=== PATIENT | female | born 1990 | race Caucasian/White ===

== ENCOUNTER 2017-06-11 23:56 | Emergency (ER) | payer BC ==
[2017-06-12] MEDS ORDERED: Lactated Ringer's 1,000 ML IV SCH (00:45)
[2017-06-12 00:47] VITALS: BMI 20.7
[2017-06-12 01:17] LABS: BASO # 0.1 K/uL (0.0-0.2); BASO % 0.4 % (0.0-2.0); EOS % 0.2 % (0.0-4.0); LYMPH # 0.8 K/uL (1.0-4.3); LYMPH % 5.9 % (20.0-40.0); MEAN CELL VOLUME 86.7 fl (81.0-99.0); MEAN CORPUSCULAR HGB CONC 33.5 g/dL (33.0-37.0); MEAN PLATELET VOLUME 7.8 fl (7.2-11.7); MONO # 0.7 K/uL (0.0-0.8); MONO % 5.2 % (0.0-10.0); NEUT # 12.2 K/uL (1.8-7.0); NEUT % 88.3 % (50.0-75.0); PLATELET COUNT 149 K/uL (130-400); RBC 4.13 Mil/uL (3.80-5.20); RED CELL DISTRIBUTION WIDTH 13.3 % (11.5-14.5); WHITE BLOOD COUNT 13.9 K/uL (4.8-10.8)
[2017-06-12 01:25] LABS: ALBUMIN 3.8 g/dL (3.5-5.0); ALT/SGPT 26 U/L (9-52); AST/SGOT 24 U/L (14-36); BLOOD UREA NITROGEN 8 mg/dl (7-17); CALCIUM 9.4 mg/dL (8.4-10.2); GFR AFRICAN-AMERICAN > 60; GFR NON-AFRICAN AMERICAN > 60
[2017-06-12 01:36] LABS: URINE BILIRUBIN NEGATIVE (NEGATIVE); URINE BLOOD NEGATIVE (NEGATIVE); URINE CLARITY SLIGHT-CLOUDY (Clear); URINE COLOR YELLOW (YELLOW); URINE GLUCOSE (UA) NEGATIVE (Normal); URINE PROTEIN NEGATIVE (NEGATIVE); URINE UROBILINOGEN 0.2 mg/dL (0.2-1.0)
[2017-06-12 01:37] LABS: SQUAMOUS EPITHIAL 1 /hpf (0-5); URINE BACTERIA OCC (<OCC); URINE LEUKOCYTE ESTERASE NEGATIVE Leu/uL (Negative)
[2017-06-12 01:48] LABS: SPECIMEN COMMENT CLOUDY
[2017-06-12 03:18] LABS: BANDS 6 % (0-2); EOSINOPHIL 1 % (0-7); LYMPHOCYTE 5 % (20-50); MONOCYTE 6 % (0-10); NEUTROPHIL 82 % (42-75); TOTAL CELLS COUNTED 100
[2017-06-12 03:19] LABS: PLATELET ESTIMATE NORMAL (NORMAL)
[2017-06-12 06:20] VITALS: BP 115/69; PULSE 91; RESP 18; TEMP 97.9; O2SAT 100
--- NOTE | 2017-06-12 08:45 | OBHP ---
Datetime: 06/12/2017 00:47 IP Adm Impression: , intrauterine IP Chief Complaint Other: abdominal pain and vaginal discharge IP Admit Plan: Observation/Evaluation Admit Comment, IP Provider: 26 yo at 29.6 weeks GA, USHA on 08/22/17 presents to [facility] w/ c/o RLQ pain and right sided lower back pain since 10:30 pm last night. Pt reports pain started suddenly and worse with movement. Reports she felt nausous earlier but no nausea now. Also, reports whitish vagina l non-odorous discharge for 3 days. Denies dysuria, vomiting, fever, chills. Denies VB, ctx, LOF. Rep orts +FM. Denies hx abdominal surgery. NO VOMITING PNC: Dr. Perez, [place], [place] Past obhx: G1 Past e marketing specialist: denies hx STI. Unsure of PAP results. Can't recall LMP pmhx: denies pshx: denies social hx: denies smoking cigarettes, EtOH use or recreational drug use family hx: denies hx CAD or HTN meds: none ( not taking pnv for last 2 weeks) allergies: NKDA Assessment: 26 yo IUP@ 29.6 weeks GA presents with abdominal pain. Plan: Continuous heart tracing IV fluids CBC CMP UA fFN Re-evaluate Pt feels signficantly better after IVF and tylenol. UA shows no nitrates, leukocytes or blood. fFN is neg. Reactive NST. CMP is remarkable for hypokalemia (K:3.0), advised patient to eat potassium r ich food. CBC has mildly elevated WBC, which could be elevated due to . Advised patient to f /u with Dr. Farah in 2-3 days. labor precaution and ED precaution given Sultan Becerra, pgy-1 Case d/w on-call OB hospitalist Dr. Gracia OB Hosptialist on-call. With PGY1, I saw and examined this patinet. Agree with note. MAHNDO She feels fine. Advised if increased pain with /V to come back to ER. No evidence of appendiciti s - feels hungry...will discharge home Abdomen - PN: Abnormal Back - PN: Normal Lungs - PN: Normal Heart - PN: Normal Neurologic - PN: Normal HEENT - PN: Normal General - PN: Normal FHR - Baseline A Provider: 150s Comments, ACOG Physical Exam: Abdomen:gravid uterus; soft No suprapubic tenderness, no guarding or r ebound tenderness. No CVA tenderness. Speculum exam: no lesion on external genitalia, Mild whitish vaginal discharge on vagial vault. No vaginal bleeding. closed cervix. EGA AdmitDate IP: 29.6 Vital Signs Provider: Reviewed IP Chief Complaint: Maternal discomfort NICHD Variability Prov Fetus A: Moderate 6-25bpm NICHD Accel Fetus A IP Provider: 10X10 FHR Category Provider Fetus A: Category I NICHD Decel Fetus A IP Provider: None Dilatation, Provider: 0
--- NOTE | 2017-06-12 08:45 | OBDCSUM ---
Datetime: 06/12/2017 02:02 Discharged to, Provider: Home Follow up at, Provider: PMD Disch Instr Activity: Normal activity Disch Instr Diet: Regular Discharge Diagnosis, Provider: False Labor - Undelivered Discharge Time: 06/05/2017 02:02 Follow up in weeks, Provider: 1-2w Discharge Diagnosis Prov Other: Abd pain
== END 2017-06-12 02:02 | disposition home or self-care (01) ==
LOC: H.EROB2 23:56
DX: O26.93 Pregnancy related conditions, unspecified, third trimester (principal); R10.2 Pelvic and perineal pain; Z3A.39 39 weeks gestation of pregnancy
CPT/HCPCS: 80053; 81003; 82731; 85025; 96360; 99284; J7120

== ENCOUNTER 2017-08-12 00:52 | Inpatient (IN) | payer BC ==
[2017-08-12] MEDS ORDERED: Phenaphthazine-PH Test Paper VI ONE (01:22)
[2017-08-12 01:36] VITALS: BMI 22.4
[2017-08-12] MEDS ORDERED: Lactated Ringer's 1,000 ML IV SCH (01:45)
[2017-08-12] MEDS: Lactated Ringer's 1,000 ML IV SCH ×2 (01:48→02:28)
[2017-08-12 02:05] LABS: BASO # 0.1 K/uL (0.0-0.2); BASO % 0.8 % (0.0-2.0); EOS # 0.1 K/uL (0.0-0.7); EOS % 0.7 % (0.0-4.0); HEMOGLOBIN 12.9 g/dL (12.0-16.0); LYMPH # 1.7 K/uL (1.0-4.3); LYMPH % 15.6 % (20.0-40.0); MEAN CELL VOLUME 82.3 fl (81.0-99.0); MEAN CORPUSCULAR HEMOGLOBIN 28.5 pg (27.0-31.0); MEAN CORPUSCULAR HGB CONC 34.6 g/dL (33.0-37.0); MEAN PLATELET VOLUME 8.5 fl (7.2-11.7); MONO % 9.5 % (0.0-10.0); NEUT # 7.9 K/uL (1.8-7.0); NEUT % 73.4 % (50.0-75.0); RBC 4.54 Mil/uL (3.80-5.20); RED CELL DISTRIBUTION WIDTH 13.7 % (11.5-14.5); WHITE BLOOD COUNT 10.8 K/uL (4.8-10.8)
[2017-08-12] MEDS ORDERED: Fentanyl/Bupivacaine HCl 250 ML EPI ONE (02:15)
[2017-08-12] MEDS ORDERED: ePHEDrine 50 mg/ml Inj ONE (02:40)
[2017-08-12] MEDS ORDERED: Lidocaine 1% 20 MG/2 ML PF AMP ONE (07:17)
[2017-08-12] MEDS ORDERED: Oxycodone/Acetaminophen 5/325 mg Tab PO PRN (07:22)
[2017-08-12] MEDS ORDERED: Benzocaine/Menthol SPRAY TOP PRN (07:22)
--- NOTE | 2017-08-12 08:03 | OBDS ---
DELIVERY PERSONNEL Delivery Doctor: Nawaf Montanez MD Power Driven Brush Maker: Fauzia Angel RN Resident: Elier Stephen (2 residents) MATERNAL INFORMATION Delivery Anesthesia: Epidural Medications in Delivery: Pitocin 30 mu in 500cc of NS Placenta Cultured: No Maternal Complications: None RN Comments: Atraumatic of Viable babygirl with Lusty cry. Skin to skin initiated immediately after delivery.9/9 APGARS assigned. and patient tolerated delivery well. and patient r ecoverying well. Provider Comments: intrapartum dx: 38.4 weeks;labor, light meconium dx: same procedure: ; placenta delivered spontaneously and intact; repair of 2nd degree laceration ob attending: dr radford residents: brenna pgy1 and mariann pgy1 findings: viable female with spontaneous cry born at 0712, weight:3275g, apgars 9,9 destination: remained with mother in br ebl 400cc path: none LABOR SUMMARY EDC: 08/22/2017 00:00 No. Babies in Womb: 1 Attempted: No Labor Anesthesia: Epidural LABOR INFORMATION Reason for Induction: Not Applicable Onset of Labor: 08/12/2017 01:25 Complete Dilatation: 08/12/2017 06:04 Group B Beta Strep: Done, Result Unknown Antibiotics # of Doses: none Antibiotics Time of Last Dose: none Steroids Given: None Reason Steroids Not Administered: Not Applicable Other Reason Not Administered: not required MEMBRANES Membranes Rupture Method: Spontaneous Rupture of Membranes: 08/12/2017 02:57 Length of Rupture (hrs): 4.25 Amniotic Fluid Color: Light Meconium Amniotic Fluid Amount: Small Amniotic Fluid Odor: Normal STAGES OF LABOR Stage 1 hrs: 4 Stage 1 min: 39 Stage 2 hrs: 1 Stage 2 min: 8 Stage 3 hrs: 0 Stage 3 min: 17 Total Time in Labor hrs: 6 Total Time in Labor min: 4 VAGINAL DELIVERY Episiotomy: None Laceration Type: Perineal Laceration Repair: Yes Laceration Repair Note: 2nd degree laceration repaired with 3-0 vicryl. Sponge Count Correct: Yes Sharps Count Correct: Yes BABY A INFORMATION Delivery Date/Time: 08/12/2017 07:12 Method of Delivery: Vaginal Born in Route : No : N/A Forceps: N/A Vacuum Extraction: N/A Shoulder Dystocia : No SHOULDER DYSTOCIA BABY A Delivery Date/Time: 08/12/2017 07:12 PRESENTATION/POSITION BABY A Presentation: Cephalic Cephalic Presentation: Vertex Vertex Position: Left Occipital Anterior Breech Presentation: N/A PLACENTA INFORMATION BABY A Placenta Delivery Time : 08/12/2017 07:29 Placenta Method of Delivery: Spontaneous Placenta Status: Delivered SCORES BABY A Heart Rate 1 min: >100 bpm Resp Effort 1 min: Good Cry Reflex Irritability 1 min: Cough or Sneeze or Pulls Away Muscle Tone 1 min: Active Motion Color 1 min: Body [place], Extremities Blue Resuscitation Effort 1 min: N/A SCORE 1 MIN: 9 Heart Rate 5 min: >100 bpm Resp Effort 5 min: Good Cry Reflex Irritability 5 min: Cough or Sneeze or Pulls Away Muscle Tone 5 min: Active Motion Color 5 min: Body [place], Extremities Blue Resuscitation Effort 5 min: N/A SCORE 5 MIN: 9 INFORMATION BABY A Gestational Age at Delivery: 38.4 Gestational Status: Term Outcome : Liveborn Infant Condition : Stable Infant Sex: Female IDENTIFICATION/MEDS BABY A ID Band Number: [id number] ID Band Location: Left Leg; Left Arm WEIGHT/LENGTH BABY A Birthweight (gms): 3275 Weight (lb): 7 Infant Weight (oz): 3 CORD INFORMATION BABY A No. Cord Vessels: 3 Nuchal Cord : N/A Cord Blood Taken: Yes Infant Suction: Mouth; Nose ASSESSMENT BABY A Complications: None Physical Findings at Delivery: Within Normal Limits Respirations: Appears Normal Construction Supervisor/Carpenter/ALS Called : No Care By: Jose Angel Transferred To: Remains with Mother
[2017-08-12] MEDS ORDERED: Multivitamin With Minerals Tab PO SCH (09:00)
[2017-08-12 09:48] VITALS: TEMP 98.4
--- NOTE | 2017-08-12 09:56 | OBHP ---
Datetime: 08/12/2017 02:04 EGA AdmitDate IP: 38.4 Datetime: 08/12/2017 02:01 Admit Comment, IP Provider: ob attending addendum: pt seen _ examined by me. agree w/ above assessment and pla26 yo with IUP at 38.4 weeks gesta tional age, USHA 08/22/17 presented to [facility] w/ c/o contractions and suspected rupture of membranes. Con tractions started about 2 hrs prior to presentation, and are currently <5min apart. Pt thinks she rup tured membranes because her clothing was wet. Denies vaginal bleeding, reports movement. Denies headache, chest pain, shortness of breath, dysuria, vomiting, fever, chills. PNC: Dr. Perez, [place], [place] Past OBGYNhx: . Denies hx STI. PMHx: denies Past Surg Hx denies Social hx: denies smoking cigarettes, alcohol, drug use during Fam hx: denies Meds: none Allergies: NKDA SVE: 6 cm 90% effaced, -1 Sterile speculum exam: visible membranes A/P 26 yo w/ IUP at 38.4 weeks; in active labor. Admit to labor and delivery unit; expectant management. ob attending addendum: pt seen _ examined by me. agree w/ above assessment and faby Signature: oz
--- NOTE | 2017-08-12 09:57 | OBADHP ---
Datetime: 08/12/2017 02:04 Admit Comment, IP Provider: 26 yo with IUP at 38.4 weeks gestational age, USHA 08/22/17 presented to [facility] w/ c/o contractions and suspected rupture of membranes. Contractions started about 2 hrs thuy or to presentation, and are currently <5min apart. Pt thinks she ruptured membranes because her cloth ing was wet. Denies vaginal bleeding, reports movement. ROS: Denies headache, chest pain, shortness of breath, dysuria, vomiting, fever, chills. PNC: Dr. Perez, [place], [place] Past OBGYNhx: . Denies hx STI. PMHx: denies Past Surg Hx denies Social hx: denies smoking cigarettes, alcohol, drug use during Fam hx: denies Meds: none Allergies: NKDA SVE: 6 inches, 90% effaced, -1 Sterile speculum exam: membranes A/P 26 yo w/ IUP at 38.4 weeks; in active labor. Admit to labor and delivery unit; expectant management. ob attending addendum: pt seen _ examined by me. agree w/ above assessment and plan. Extremities - PN: Normal Abdomen - PN: Normal Back - PN: Normal Breast - PN: Not Done Lungs - PN: Normal Heart - PN: Normal Thyroid - PN: Not Done Neurologic - PN: Normal HEENT - PN: Normal General - PN: Normal IP Chief Complaint: Uterine contractions Dilatation, Provider: 5 Effacement, Provider: 90 Station, Provider: -1 Genitourinary Exam: Normal EGA AdmitDate IP: 38.4 IP Adm Impression: Term, intrauterine IP Admit Plan: Admit to unit; Initiate labor protocol Datetime: 08/12/2017 02:01 Pelvic Type - PN: Adequate FHR - Baseline A Provider: 130 Membranes, Provider: Intact Pool Provider: Negative Vital Signs Provider: Within Normal Limits NICHD Variability Prov Fetus A: Moderate 6-25bpm NICHD Accel Fetus A IP Provider: 15X15 FHR Category Provider Fetus A: Category I NICHD Decel Fetus A IP Provider: None Datetime: 06/12/2017 00:47 IP Chief Complaint Other: abdominal pain and vaginal discharge Comments, ACOG Physical Exam: Abdomen:gravid uterus; soft No suprapubic tenderness, no guarding or r ebound tenderness. No CVA tenderness. Speculum exam: no lesion on external genitalia, Mild whitish vaginal discharge on vagial vault. No vaginal bleeding. closed cervix.
--- NOTE | 2017-08-12 09:57 | OBHP ---
Datetime: 08/12/2017 02:04 IP Adm Impression: Term, intrauterine IP Admit Plan: Admit to unit; Initiate labor protocol Extremities - PN: Normal Abdomen - PN: Normal Back - PN: Normal Breast - PN: Not Done Lungs - PN: Normal Heart - PN: Normal Thyroid - PN: Not Done Neurologic - PN: Normal HEENT - PN: Normal General - PN: Normal EGA AdmitDate IP: 38.4 IP Chief Complaint: Uterine contractions Dilatation, Provider: 5 Effacement, Provider: 90 Station, Provider: -1 Genitourinary Exam: Normal Datetime: 08/12/2017 02:01 Admit Comment, IP Provider: ob attending addendum: pt seen _ examined by me. agree w/ above assessment and pla26 yo with IUP at 38.4 weeks gesta tional age, USHA 08/22/17 presented to [facility] w/ c/o contractions and suspected rupture of membranes. Con tractions started about 2 hrs prior to presentation, and are currently <5min apart. Pt thinks she rup tured membranes because her clothing was wet. Denies vaginal bleeding, reports movement. Denies headache, chest pain, shortness of breath, dysuria, vomiting, fever, chills. PNC: Dr. Perez, [place], [place] Past OBGYNhx: . Denies hx STI. PMHx: denies Past Surg Hx denies Social hx: denies smoking cigarettes, alcohol, drug use during Fam hx: denies Meds: none Allergies: NKDA SVE: 6 cm 90% effaced, -1 Sterile speculum exam: visible membranes A/P 26 yo w/ IUP at 38.4 weeks; in active labor. Admit to labor and delivery unit; expectant management. Pelvic Type - PN: Adequate FHR - Baseline A Provider: 130 Membranes, Provider: Intact Pool Provider: Negative Vital Signs Provider: Within Normal Limits NICHD Variability Prov Fetus A: Moderate 6-25bpm NICHD Accel Fetus A IP Provider: 15X15 FHR Category Provider Fetus A: Category I NICHD Decel Fetus A IP Provider: None
[2017-08-12] MEDS ORDERED: OXYTOCIN/0.9 % NS 20 UNIT/1,000 ML BAG IV PRN (10:57)
[2017-08-12] MEDS: Benzocaine/Menthol SPRAY TOP PRN (13:18)
[2017-08-12] MEDS: Oxycodone/Acetaminophen 5/325 mg Tab PO PRN (16:41)
[2017-08-13 05:46] LABS: BASO # 0.1 K/uL (0.0-0.2); BASO % 0.5 % (0.0-2.0); EOS # 0.1 K/uL (0.0-0.7); EOS % 0.9 % (0.0-4.0); HEMOGLOBIN 8.4 g/dL (12.0-16.0); LYMPH # 1.6 K/uL (1.0-4.3); LYMPH % 16.2 % (20.0-40.0); MEAN CELL VOLUME 83.5 fl (81.0-99.0); MEAN CORPUSCULAR HEMOGLOBIN 28.4 pg (27.0-31.0); MEAN PLATELET VOLUME 8.1 fl (7.2-11.7); MONO # 0.7 K/uL (0.0-0.8); MONO % 6.9 % (0.0-10.0); NEUT # 7.6 K/uL (1.8-7.0); NEUT % 75.5 % (50.0-75.0); RBC 2.96 Mil/uL (3.80-5.20); RED CELL DISTRIBUTION WIDTH 13.7 % (11.5-14.5)
[2017-08-13] MEDS: Multivitamin With Minerals Tab PO SCH (08:54)
--- NOTE | 2017-08-13 11:07 | OBPPN ---
Datetime: 08/13/2017 07:06 PP Pain Prov: Abnormal PP Nausea Prov: Denies PP Flatus Prov: Yes PP BM Prov: No PP Breasts Prov: Normal PP Heart Prov: Normal PP Lungs Prov: Normal PP Abdomen/Uterus Prov: Normal PP Lochia Prov: Normal PP Plan Prov: Continue present management PP Progress Note Prov: 26 yo s/p NVD on 08/12/17 at 07:12, doing well on PPD 1. Pt was seen and e elishamined at bedside this am. States that she has pain in her pelvic area and that is it very painful f or her to walk, and she feels like her bones are cracking. She is able to ambulate to the bathroom sl owly, and has voided freely. Lochia like menses. Tolerating PO intake, and is breast feeding . Has passed gas, no BM yet. Lochia like menses. Denies chest pain, dyspnea, nausea, vomiting, and dru f pain. Gen: awake, alert, no acute distress Resp: clear to auscultation bilaterally, normal effort CV: RRR, S1S2 Abd: + bs, soft, mildly and appropriately tender, firm fundus at umbilicus Ext: no edema, no calf tenderness Neuro/MSK: equal and intact sensation in all extremities; able to wiggle toes, planar flex, dorsif nixon. Extremities warm to touch, normal color. Pain with passive range of motion hip R>L. A/P 26 yo s/p NVD on 08/12/17 at 07:12, doing well on PPD 1. Encourage . Pain control. Continue current post- management. Medical hospitalis t consult. PP Hgb 8.4 from 12.9. Start ferrous sulfate 325 mg. [facility]...Pt seen and examined...will obtain consult/xray pelvis Vital Signs Provider PP: Reviewed
--- NOTE | 2017-08-13 12:35 | RAD ---
PROCEDURE: Radiographs of the pelvis. L HISTORY: Rule out diastases of the pubic symphysis COMPARISON: None. FINDINGS: BONES: Pelvic Bones: Unremarkable. Hips: Grossly unremarkable. JOINTS: Sacroiliac Joints: Unremarkable. Pubic Symphysis: Widening of the pubic symphysis (2.1 cm) on this single AP view. OTHER FINDINGS: None. 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
--- NOTE | 2017-08-13 14:23 | CP.PCM.CON ---
History of Present Illness - History of Present Illness History of Present Illness: CC: Pubic symphysis pain This is a 26 year old female with no significant past medical history for which the medical hospitalist team was consulted by Dr. Chicas. The patient had an atraumatic on 08/12/2017. Overnight the patient c/o point tenderness to her pubic symphysis and has decreased ROM due to pain. Pelvic X ray was performed which shows 2.1 cm pubic symphysis diastasis which is consistent which her symptoms. The patient is able to bear weight on both legs and denies any weakness bilaterally. She denies any posterior pelvic joint pain. Patient denies chest pain, shortness of breath, fevers, chills, nausea, vomiting, diarrhea, headache. All of the patient's questions were answered at the bedside. Review of Systems - Review of Systems Review of Systems: A 12 point review of systems was conducted and found to be negative Past Patient History - Infectious Disease Hx of Infectious Diseases: None - Past Medical History & Family History Past Medical History?: No Past Family History: Reviewed and not pertinent - Past Social History Smoking Status: Former Smoker Meds Allergies/Adverse Reactions: Allergies Allergy/AdvReac Type Severity Reaction Status Date / Time No Known Allergies Allergy Verified 06/12/17 00:36 - Medications Medications: Current Medications Benzocaine/Menthol (Dermoplast) 1 sprays TOP PRN PRN PRN Reason: Perineal Discomfort Last Admin: 08/12/17 13:18 Dose: 1 sprays Ferrous Sulfate (Feosol) 325 mg PO BID [facility] Last Admin: 08/13/17 08:53 Dose: 325 mg Ibuprofen (Motrin Tab) 600 mg PO Q6 PRN PRN Reason: Pain, Mild (1-3) Last Admin: 08/13/17 08:54 Dose: 600 mg Multivitamins/Minerals (Therapeutic-M Tab) 1 tab PO DAILY [facility] Last Admin: 08/13/17 08:54 Dose: 1 tab Oxycodone/Acetaminophen (Percocet 5/325 Mg Tab) 1 tab PO Q4 PRN PRN Reason: Pain, moderate (4-7) Stop: 08/15/17 07:23 Last Admin: 08/12/17 16:41 Dose: 1 tab Sennosides (Senokot Tab) 17.2 mg PO HS [facility]OCELIN Last Admin: 08/12/17 23:33 Dose: 17.2 mg Physical Exam - Additional Findings Additional findings: Physical exam: Constitutional- cooperative, awake, alert Head- NCAT, PERRL Eye- PERRL, EOMI ENT- normal exam, MMM. Neck- normal inspection, supple, no JVD Respiratory- CTAB, no wheezes rales rhonchi Cardiovascular- RRR, +S1, +S2 no MRG GI/Abdominal- normal bowel sounds, soft, no mass, no hsm Skin- warm, dry Extremities Exam- normal capillary refill, normal inspection. Gait ROM limited due to pain - point tenderness to midline of pubic symphysis, rest of exam deferred Neurological Exam- alert, awake, oriented Psych- normal mood, normal affect Results - Vital Signs Recent Vital Signs: Last Vital Signs Temp 98.4 F 08/12/17 09:29 Pulse 84 08/12/17 09:29 Resp 18 08/12/17 09:29 BP 126/75 08/12/17 09:29 Pulse Ox - Labs Result Diagrams: 08/13/17 05:25 Labs: Laboratory Results - last 24 hr 08/13/17 05:25 WBC 10.0 RBC 2.96 L Hgb 8.4 L D Hct 24.7 L MCV 83.5 MCH 28.4 MCHC 34.0 RDW 13.7 Plt Count 122 L D MPV 8.1 Neut % (Auto) 75.5 H Lymph % (Auto) 16.2 L Webster % (Auto) 6.9 Eos % (Auto) 0.9 Baso % (Auto) 0.5 Neut # (Auto) 7.6 H Lymph # (Auto) 1.6 Webster # (Auto) 0.7 Eos # (Auto) 0.1 Baso # (Auto) 0.1 Assessment & Plan - Assessment and Plan (Free Text) Plan: ASSESSMENT/PLAN 26 yo female day 1 after presenting with pubic symphysis diastasis. 2.1 cm pubic symphysis diastasis - Dx with pelvic X ray - Recommend conservative management at this time - Physical therapy to evaluate and treat - Rolling walker prescribed - Analgesia as per primary - Continue to use pelvic brace/belt to provide support - Ice affected area PRN - If pain lasts > 6 weeks the patient should be referred to an neonatal specialist. - Will sign off at this time, thank you very much for the consultation.
[2017-08-13] MEDS: Oxycodone/Acetaminophen 5/325 mg Tab PO PRN (20:10)
--- NOTE | 2017-08-13 21:28 | OBPPN ---
Datetime: 08/13/2017 18:53 PP Progress Note Prov: Pelvic x-ray performed which shows 2.1 cm pubic symphysis diastasis. Hospital ist consult appreciated. Recommend ed conservative management at this time, PT eval and treat, corinna g walker use, and pelvic brace for support. [facility]. Aware of above MARINO
[2017-08-14] MEDS: Multivitamin With Minerals Tab PO SCH ×2 (07:42→09:59)
[2017-08-14] MEDS: Oxycodone/Acetaminophen 5/325 mg Tab PO PRN ×2 (07:42→13:24)
[2017-08-14] MEDS ORDERED: Tdap Vaccine 0.5 ml Vial (10-64 yrs) IM ONE (10:00)
--- NOTE | 2017-08-14 14:58 | OBPPN ---
Datetime: 08/14/2017 06:33 PP Nausea Prov: Denies PP Flatus Prov: Yes PP BM Prov: No PP Breasts Prov: Normal PP Heart Prov: Normal PP Lungs Prov: Normal PP Abdomen/Uterus Prov: Normal PP Lochia Prov: Normal PP Extremities Prov: Normal PP Progress Note Prov: 26 yo s/p NVD on 08/12/17 at 07:12, PPD 2. Pt was seen and examined at bed side this am, reports pain is improved from yesterday. Was seen by hospitalist and physical therapist yesterday- has symphysis pubis dysfunction, widening to 2.1cm. She is able to ambulate to the braddockro slowly, and has been voiding and passing gas. Lochia like menses. Tolerating PO intake, and is kady ast and bottle feeding . Denies chest pain, dyspnea, nausea, vomiting, and calf pain. Gen: awake, alert, no acute distress Resp: clear to auscultation bilaterally, normal effort CV: RRR, S1S2 Abd: + bs, soft, mildly and appropriately tender, firm fundus at umbilicus Ext: no edema, no calf tenderness A/P 26 yo s/p NVD on 08/12/17 at 07:12, PPD 2. To be seen by PT/case management today; likely discharge this afternoon. Encourage , use of rolling walker, pelvic brace, and pain control. [email or web address] The patient was seen with the resident I agree with note patient complains of pubic symphysis sepa ration and discomfort patient to be seen by physical therapy Vital Signs Provider PP: Reviewed; Within Normal Limits
[2017-08-14] MEDS ORDERED: Lansinoh for Breast Feeding Mothers TP ONE (20:58)
[2017-08-15] MEDS: Benzocaine/Menthol SPRAY TOP PRN (06:56)
[2017-08-15] MEDS: Multivitamin With Minerals Tab PO SCH (08:44)
[2017-08-15 22:46] VITALS: BP 110/61; PULSE 93; RESP 19; O2SAT 99
== END 2017-08-15 18:20 | disposition home or self-care (01) | DRG 775 ==
LOC: H.EROB2 00:52 → H.L&D 01:33 → H.OB/GYN 10:10
PROVIDERS: ADMIT Obstetrics & Gynecology; ATTEND Obstetrics & Gynecology
PROC: 10E0XZZ Delivery of Products of Conception, External Approach (ICD-10-PCS; principal; 2017-08-12)
PROC: 0KQM0ZZ Repair Perineum Muscle, Open Approach (ICD-10-PCS; 2017-08-12)
PROC: 4A1HXCZ Monitoring of Products of Conception, Cardiac Rate, External Approach (ICD-10-PCS; 2017-08-12)
PROC: 3E0234Z Introduction of Serum, Toxoid and Vaccine into Muscle, Percutaneous Approach (ICD-10-PCS; 2017-08-14)
DX: O77.0 Labor and delivery complicated by meconium in amniotic fluid (principal); O71.6 Obstetric damage to pelvic joints and ligaments; O70.1 Second degree perineal laceration during delivery; Z3A.38 38 weeks gestation of pregnancy; Z37.0 Single live birth; Z87.891 Personal history of nicotine dependence; Z23 Encounter for immunization